=== PATIENT | male | born 1990 | race Caucasian/White ===

== ENCOUNTER 2016-11-23 14:00 | Observation (INO) | payer OTHER, BC ==
--- NOTE | ~2016-11-23 | HP ---
History And Physical [place] [address] [facility] [place]. [address] NAME: AIME GARG JR : 89 STATUS : ADM Krystyna PAT#: [id number] AGE: 26 ADM/REG DATE : 11/23/16 MR#: [id number] REPORT SERV DATE: 11/24/16 DICTATED BY: BELLA CANNON DATE: 11/24/16 REPORT STATUS : Draft TRANSCRIBED BY: MODL DATE: 11/24/16 DATE OF ADMISSION: 11/23/2016 PRIMARY GEOTHERMAL PRODUCTION MANAGER: Dr. Baker. PRIMARY BAR STEWARD: Dr. Ferro. CHIEF COMPLAINT: Chest pain and passing out. HISTORY OF PRESENT ILLNESS: This is a 26-year-old male who is accompanied by his mother in the room. He has a history of autism, ADHD, hypothyroidism, obstructive sleep apnea, and some chronic lung problems given history of premature . Yesterday morning, he was home alone in his parent's house when he developed chest pain to the mid sternum, described as "explosive burning" with radiation to the left neck. He called his mom who was at that time seeing her sick daughter in [place] and she recommended that he go walk their dog as he does have a history of some acid reflux. He went to walk the dog, but he felt very short of breath and also described some palpitations, feeling like his heart was "pounding." He called his mother back and told her that he was still having chest pain and then while he was on the phone with her around 10:45, he described some dizziness and then he stopped talking on the phone. The patient describes doing a controlled fall, but then hitting the kitchen counter and passing, hitting the kitchen counter with his nose and then passing out. He came back to the phone according to his mother after a few seconds. She then sent her to go check on him and the patient's father arrived several minutes later and the patient still felt weak and dizzy, calm. He checked his pulse and it was between 50s and 70s. Then they came to our emergency department for further evaluation. He was found to be in atrial fibrillation with RVR at 138 beats per minute and IV Cardizem was started. Unfortunately, the patient had allergic reaction with a rash to the IV Cardizem, but he did eventually convert back to sinus rhythm in the emergency department. He was admitted to our atrial fibrillation observation unit with an initial troponin of 0.10. The patient is very talkative and upbeat. He describes no further episodes during the night. According to telemetry, he has been in sinus rhythm throughout the night. I asked the mother who is bedside whether the patient came too quickly after the episode and she states that he did. He has no history of seizures, but over the last year she does mention that he has had an occasional "blank stare" such as when he comes to a stoplight while driving a very short distance to work. The patient was not hypoglycemic on admission. He denies personal history for DVT, PE, FL, or CVA. 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 Baker. He also has been taking medicine for ADHD for several years. No new recent medications. The patient's parents stay concerned with his poor diet, which is a lot of pizza and high salty foods. MEDICAL HISTORY: 1. COPD, followed by Dr. Baker. 2. Obstructive sleep apnea, noncompliant with CPAP therapy. 3. History of irritable bowel syndrome, combined. Not current. 4. GERD, followed by Dr. Ferro. History And Physical [address] [address] NAME: MERLEMARIMARAIME ENRIQUE HULL : 89 STATUS : ADM Krystyna PAT#: [id number] AGE: 26 ADM/REG DATE : 11/23/16 MR#: [id number] REPORT SERV DATE: 11/24/16 DICTATED BY: BELLA CANNON DATE: 11/24/16 REPORT STATUS : Draft TRANSCRIBED BY: KADEEM DATE: 11/24/16 5. Hypothyroidism. 6. Autism. 7. ADHD. 8. Anxiety. SURGICAL HISTORY: Tonsillectomy and adenoidectomy achieved in 1999. MEDICATIONS: Albuterol two puffs inhaled q.6 p.r.n., Focalin XR 20 daily, Prozac 40 daily, Advil 200 q.6 p.r.n., levothyroxine 100 mcg daily, Nasonex 2 sprays daily p.r.n. allergies, Asmanex 1 puff daily, Singulair 10 at bedtime, Protonix 40 daily. ALLERGIES: TO ATIVAN, CAUSES RASH, AND IV DILTIAZEM, CAUSES RASH. SOCIAL HISTORY: The patient currently lives with his mother and father. He has one sister in college. Never smoked. He drinks an occasional Leo's alcoholic beverage, maybe one- quarter of a bottle. He does admit to drinking approximately 1 L of Coke daily. No illicit drug use. FAMILY HISTORY: He is adopted, unknown family history. REVIEW OF SYSTEMS: Negative, except as indicated above. PHYSICAL EXAMINATION: VITAL SIGNS: Blood pressure 113/66, heart rate 60s to 70s, temperature 97.5, pulse oximetry 96% on room air. BMI 25.4. GENERAL: Well developed, well nourished, in no acute distress HEENT: Anicteric. Normal EOM. Head normocephalic. PERRLA, no xanthelasma. NECK: Supple. No JVD. Carotids normal without bruits. LUNGS: Clear to auscultation bilaterally anterior and posterior. Respirations even and unlabored. CARDIAC: S1, S2 regular rate and rhythm. No murmurs, rubs, or gallops. No chest wall tenderness. ABDOMEN: Normal bowel sounds. Soft and nontender to palpation. No masses or organomegaly. EXTREMITIES: No peripheral edema. DP/PT and radial pulses palpable bilaterally. No clubbing or cyanosis. SKIN: Warm and dry. Normal turgor. No pallor or cyanosis. MUSCULOSKELETAL: Moving all extremities x4. Normal muscle strength. NEURO/PSYCH: Alert and oriented with appropriate affect. LABORATORY DATA: White blood count 11.9, hemoglobin 17.8, hematocrit 50.8. Sodium 143, potassium 4.2, BUN 20, creatinine 1.0, magnesium 2.6. Troponin 0.1, 0.17, and 0.07. TSH 0.7, T4 1.1. Liver enzymes normal. Chest x-ray showed no acute cardiopulmonary processes. CT of the brain without contrast showed some moderately enlarged lateral ventricles, absent septum pellucidum, which may be normal variant. No intracranial hemorrhage. CTA of the chest showing no evidence of pulmonary emboli and no acute abnormalities. EKG is interpreted by myself, indicates atrial fibrillation with rate 138 beats per minute. History And Physical [address] [place]. [address] NAME: AIME GARG JR : 89 STATUS : ADM Krystyna PAT#: [id number] AGE: 26 ADM/REG DATE : 11/23/16 MR#: [id number] REPORT SERV DATE: 11/24/16 DICTATED BY: BELLA CANNON DATE: 11/24/16 REPORT STATUS : Draft TRANSCRIBED BY: KADEEM DATE: 11/24/16 Subsequent EKG showing sinus rhythm with some mild sinus arrhythmia. ASSESSMENT AND PLAN: 1. Syncope with a negative CT of the brain. No residual neurological deficits. The patient was not noticeably postictal or hypoglycemic on admission. I question whether this was more of a presyncopal event related to his atrial fibrillation and RVR. We plan to check an echocardiogram and recommend followup with his primary care physician. 2. Paroxysmal atrial fibrillation, which converted to normal sinus rhythm after some IV Cardizem. Of note, the patient is allergic to IV Cardizem with a rash. The patient was placed on Eliquis for stroke prophylaxis on our atrial fibrillation observation protocol. We will discontinue this as the patient's CHADS2-VASc score is 0 and start aspirin 81 mg daily. The patient's parents both see Dr. Raza Pena. We have recommended follow up with him upon discharge. The patient has been seen by Dr. Juárez and myself here down during this hospitalization. 3. Chest pain. This is likely associated with paroxysmal atrial fibrillation and elevated troponins, consistent with some demand ischemia. We will send the patient for a treadmill only stress test today and if this is low risk, discharge him home later today, to followup with Dr. Raza Pena as well as his primary care physician. I have also educated the patient on low-fat, low-cholesterol diet and increasing exercise and decreasing caffeine. LEANDRA/KADEEM Bella Cannon NP / [id number] CC: Radha Paulino, MSN, [employer]ER-BC Abiel Chinchilla M.D. Kun George M.D.
[2016-11-23 15:18] LABS: BASOPHILS 0.2 %; BASOPHILS ABSOLUTE 0.02 10/3/uL (0.0-0.16); EOSINOPHILS 0.4 %; EOSINOPHILS ABSOLUTE 0.05 10/3/uL (0.0-0.53); HEMOGLOBIN 17.8 g/dL (13.6-17.8); IMMATURE GRANULOCYTES 0.3 %; IMMATURE GRANULOCYTES ABSOLUTE 0.03 10/3/uL (0.0-0.11); LYMPHOCYTES 19.8 %; LYMPHOCYTES ABSOLUTE 2.36 10/3/uL (0.67-4.30); MEAN CORPUSCULAR HEMOGLOB 31.6 pg (26.0-34.0); MEAN CORPUSCULAR VOLUME 90.1 fL (80-100); MEAN PLATELET VOLUME 10.9 fL (9.2-13.0); MONOCYTES 6.1 %; MONOCYTES ABSOLUTE 0.73 10/3/uL (0.21-1.20); NEUTROPHILS 73.2 %; NEUTROPHILS ABSOLUTE 8.71 10/3/uL (2.02-8.40); RBC DISTRIBUTION WIDTH 12.6 % (12.0-16.0); RED CELL COUNT 5.64 10/6/uL (4.7-6.1)
[2016-11-23 15:19] LABS: ER CBC TAT 0 Hrs 11 Mins; HEMATOCRIT 50.8 % (40.0-51.0); MANUAL DIFF NO %; PLATELET COUNT 373 10/3/uL (150-400); WHITE BLOOD CELLS 11.9 10/3/uL (4.5-10.5)
[2016-11-23 15:29] LABS: INTERNATIONAL NORMAL RATI 1.1 UNITS (-); PARTIAL THROMBO TIME 29.4 SEC (22.5-37.2); PROTIME (NOT ORD) 13.6 SEC (12.0-14.5)
[2016-11-23 15:34] LABS: CALCIUM, SERUM 9.5 MG/DL (8.5-10.4); CHLORIDE, SERUM 107 MMOL/L (96-112); CREATININE 1.03 MG/DL (0.70-1.30); GFR AFRICAN AMERICAN 116 ML/MIN (>=60); GFR NON AFRICAN AMERICAN 100 ML/MIN (>=60); GLUCOSE, SERUM 99 MG/DL (60-99); POTASSIUM, SERUM 4.2 MMOL/L (3.5-5.3); SODIUM, SERUM 143 MMOL/L (135-148)
[2016-11-23 15:35] LABS: BUN (BLOOD UREA NITROGEN) 20 MG/DL (6-23); CO2 (CARBON DIOXIDE) 26 MMOL/L (24-34)
[2016-11-23 15:36] LABS: CHEST PAIN PROFILE TAT 0 Hrs 28 Mins
[2016-11-23 16:17] LABS: ULTRASENSITIVE TSH 0.794 MCIU/ML (0.358-3.740)
[2016-11-23] MEDS ORDERED: FOCALIN XR20 MG PO (16:32)
[2016-11-23] MEDS ORDERED: LEVOTHYROXIN100 MCG PO (16:32)
[2016-11-23] MEDS ORDERED: PROTONIX PO (16:32)
[2016-11-23] MEDS ORDERED: PROZAC40 MG PO (16:33)
[2016-11-23] MEDS ORDERED: ASMANEX INH (16:33)
[2016-11-23] MEDS ORDERED: PROVHFA INH (16:33)
[2016-11-23] MEDS ORDERED: SINGULAIR1 PO (16:33)
[2016-11-23] MEDS ORDERED: ADVIL PO (16:34)
[2016-11-23] MEDS ORDERED: NASONEX NAS (16:34)
[2016-11-23 21:05] LABS: ALBUMIN 3.7 G/DL (3.5-5.0); ALKALINE PHOSPHATASE 49 U/L (45-117); DIRECT BILIRUBIN < 0.1 MG/DL (0.0-0.4); FREE T4 1.12 NG/DL (0.76-1.46); INDIRECT BILIRUBIN(NOT ORDER) 0.2 MG/DL (0.1-0.9); SGOT(AST) 11 U/L (5-40); SGPT(ALT) 27 U/L (5-65); TOTAL BILIRUBIN 0.3 MG/DL (0-1.2); TOTAL PROTEIN 6.3 G/DL (6.0-8.5); TROPONIN I 0.17 NG/ML (<0.05)
[2016-11-24] MEDS ORDERED: ASAB PO (14:20)
== END 2016-11-24 14:43 | disposition home or self-care (01) ==
LOC: ER 14:00 → CDU1 18:34 → CDU2 19:10
PROVIDERS: Hospitalist; Nurse Practitioner
DX: R55 Syncope and collapse (principal); I48.0 Paroxysmal atrial fibrillation; E03.9 Hypothyroidism, unspecified; G47.33 Obstructive sleep apnea (adult) (pediatric); J44.9 Chronic obstructive pulmonary disease, unspecified; K21.9 Gastro-esophageal reflux disease without esophagitis; F90.9 Attention-deficit hyperactivity disorder, unspecified type; F41.9 Anxiety disorder, unspecified; F84.0 Autistic disorder; Z90.49 Acquired absence of other specified parts of digestive tract; Z79.899 Other long term (current) drug therapy
CPT/HCPCS: 70450; 71020; 71275; 80048; 80076; 82962; 83735; 83880; 84439; 84443; 84484; 85025; 85610; 85730; 93005; 93017; 93306; 96372; 96374; 96375; 96376; 99291; A9270-GY; G0378; J1160; J1200; Q9967